=== PATIENT | male | born 1950 ===

== ENCOUNTER 2017-04-13 13:05 | Emergency (ER) | payer OTHER ==
[2017-04-13 13:14] VITALS: BP 177/95; PULSE 64; RESP 16; TEMP 97.7; O2SAT 96
[2017-04-13] MEDS ORDERED: RABIES IMMUNE GLOBULIN 300 UNIT/2 ML VIAL IM ONE (13:15)
[2017-04-13] MEDS ORDERED: RABIES VACC, HUMAN DIPLOID/PF 2.5 UNIT VIAL (RABAVERT) IM ONE (13:19)
--- NOTE | 2017-04-13 13:19 | EDPHY ---
H & P Time Seen by Provider: 04/13/17 13:15 HPI/ROS: CHIEF COMPLAINT: Here for rabies prophylaxis vaccine and Ig HISTORY OF PRESENT ILLNESS: 66-year-old male sent to the emergency department by his primary care doctor's office for rabies Ig and rabies vaccine after an exposure. Pt found a live bat in his home 3 days ago that tested positive for rabies. Pt reports no known bite or exposure. Smoking Status: Never smoked Physical Exam: GEN: Awake, alert, oriented, no acute distress RESP: nl resp effort MSK: Normal appearing SKIN: No rash, no break in skin Constitutional: Initial Vital Signs Temperature (C) 36.5 C 04/13/17 13:07 Heart Rate 64 04/13/17 13:07 Respiratory Rate 16 04/13/17 13:07 Blood Pressure 177/95 H 04/13/17 13:07 O2 Sat (%) 96 04/13/17 13:07 O2 Delivery Mode Room Air Allergies/Adverse Reactions: No Known Allergies Allergy (Verified 04/13/17 13:11) Home Medications: Medication Instructions Recorded Lipitor 04/13/17 Wellbutrin 100mg (*) 04/13/17 MDM/Departure - Depart Disposition: Home, Routine, Self-Care Clinical Impression: Need for post exposure prophylaxis for rabies Condition: Good Instructions: Rabies (ED), Rabies Vaccine (ED) Additional Instructions: Follow up with Dr. Snow for repeat rabies vaccine on SundayApril 16SundayApril 20SundayApril 27 Referrals: RICHELLE SNOW [Primary Care Provider] - As per Instructions
== END 2017-04-13 14:05 | disposition home or self-care (01) ==
DX: Z20.3 Contact with and (suspected) exposure to rabies (principal); Z23 Encounter for immunization

== ENCOUNTER → 2019-02-25 | Outpatient (CLI) | payer OTHER | LOC: BMCIMAGING 08:00 | PROVIDERS: ATTEND Family Medicine | DX: N28.1 Cyst of kidney, acquired (principal) ==